=== PATIENT | female | born 1955 | race Caucasian/White ===

== ENCOUNTER → 2016-07-21 | Outpatient (CLI) | payer BC ==
[~2016-07-21] MED LIST: ESTRACE 1MG1 MG/TAB PO; SYNTHROID0.075 MG/T PO
== END ==
LOC: MC.RAD 07:29
DX: Z12.31 Encounter for screening mammogram for malignant neoplasm of breast (principal); R92.0 Mammographic microcalcification found on diagnostic imaging of breast

== ENCOUNTER 2016-12-16 14:52 | Day surgery (SDC) | payer BC ==
[~2016-12-16] VITALS: Ht 177.8 cm; Wt 82.8 kg
[2016-12-16] MEDS ORDERED: ESTRACE 1MG1 MG/TAB PO (15:12)
[2016-12-16] MEDS ORDERED: SYNTHROID0.075 MG/T PO (15:13)
[2016-12-16 15:30] VITALS: BP 135/76; PULSE 77; TEMP 98.2
[2016-12-16 17:25] VITALS: BP 119/57; PULSE 71; TEMP 97.7
[2016-12-16 17:30] VITALS: BP 105/63; PULSE 74
[2016-12-16 17:45] VITALS: BP 114/74
== END 2016-12-16 18:00 | disposition home or self-care (01) ==
LOC: SDCO 14:52
DX: Z86.010 Personal history of colon polyps (principal); Z90.710 Acquired absence of both cervix and uterus; Z90.721 Acquired absence of ovaries, unilateral; E03.9 Hypothyroidism, unspecified; E78.5 Hyperlipidemia, unspecified; Z80.52 Family history of malignant neoplasm of bladder; Z80.3 Family history of malignant neoplasm of breast; Z80.51 Family history of malignant neoplasm of kidney
CPT/HCPCS: OP; J2250; J2405; J3010; J7030

== ENCOUNTER → 2017-07-09 | Outpatient (CLI) | payer OTHER | LOC: COL.RAD 09:30 | DX: J34.89 Other specified disorders of nose and nasal sinuses (principal); S00.93XA Contusion of unspecified part of head, initial encounter; R10.9 Unspecified abdominal pain; R31.9 Hematuria, unspecified; V89.2XXA Person injured in unspecified motor-vehicle accident, traffic, initial encounter ==

== ENCOUNTER → 2017-12-01 | Outpatient (CLI) | payer BC | LOC: MC.RAD 11:17 | DX: Z12.31 Encounter for screening mammogram for malignant neoplasm of breast (principal) ==

== ENCOUNTER → 2018-01-29 | Outpatient (CLI) | payer OTHER | LOC: COL.RAD 10:28 | DX: M23.91 Unspecified internal derangement of right knee (principal); M24.10 Other articular cartilage disorders, unspecified site; M25.761 Osteophyte, right knee ==

== ENCOUNTER → 2018-12-02 | Outpatient (CLI) | payer BC | LOC: MC.RAD 10:09 | DX: Z12.31 Encounter for screening mammogram for malignant neoplasm of breast (principal) ==

== ENCOUNTER → 2020-02-01 | Outpatient (CLI) | payer BC | LOC: MC.RAD 13:59 | DX: Z12.31 Encounter for screening mammogram for malignant neoplasm of breast (principal) ==

== ENCOUNTER → 2021-02-06 | Outpatient (CLI) | payer BC | LOC: MC.RAD 13:27 | DX: Z12.31 Encounter for screening mammogram for malignant neoplasm of breast (principal) ==

== ENCOUNTER → 2022-02-06 | Outpatient (CLI) | payer BC | LOC: MC.RAD 11:30 | DX: Z12.31 Encounter for screening mammogram for malignant neoplasm of breast (principal) ==